=== PATIENT | female | born 1995 | race Caucasian/White ===

== ENCOUNTER 2017-07-24 19:52 | Emergency (ER) | payer SELFPAY ==
[~2017-07-24] VITALS: Ht 167.6 cm; Wt 79.5 kg
[2017-07-24 20:04] VITALS: PULSE 75; TEMP 98.1
[2017-07-24] MEDS ORDERED: PHENERGAN 25 TA25 MG PO (23:40)
[2017-07-25 00:08] VITALS: BP 154/73
== END 2017-07-25 00:08 | disposition home or self-care (01) ==
LOC: COL.ER 19:52
DX: K52.9 Noninfective gastroenteritis and colitis, unspecified (principal)
CPT/HCPCS: J1200; J1885; J2550; J7030

== ENCOUNTER 2017-08-22 15:32 | Emergency (ER) | payer SELFPAY ==
[~2017-08-22] VITALS: Ht 167.6 cm; Wt 75.0 kg
[~2017-08-22 15:32] MED LIST: PHENERGAN 25 TA25 MG PO
[2017-08-22 15:34] VITALS: BP 151/67; TEMP 97.7
[2017-08-22 17:01] VITALS: PULSE 82
== END 2017-08-22 17:02 | disposition home or self-care (01) ==
LOC: COL.ER 15:32
DX: M25.461 Effusion, right knee (principal); F17.210 Nicotine dependence, cigarettes, uncomplicated; X58.XXXA Exposure to other specified factors, initial encounter; Y92.89 Other specified places as the place of occurrence of the external cause; Y99.0 Civilian activity done for income or pay

== ENCOUNTER 2017-09-13 20:48 | Emergency (ER) | payer SELFPAY ==
[~2017-09-13] VITALS: Ht 167.6 cm; Wt 80.9 kg
[2017-09-13 22:09] LABS: COLLECTION METHOD CLEAN CATCH
[2017-09-13 22:23] LABS: MUCOUS Present /lpf; PH 5 (5-8); URINE APPEARANCE Hazy; URINE BACTERIA None Seen /hpf; URINE BILIRUBIN Negative (NEGATIVE); URINE BLOOD Negative (NEGATIVE); URINE COLOR Yellow; URINE GLUCOSE Negative (NEGATIVE); URINE KETONE Negative (NEGATIVE); URINE LEUKOCYTE ESTERASE Negative (NEGATIVE); URINE NITRATE Negative (NEGATIVE); URINE PROTEIN(semi-quant) Negative (NEGATIVE); URINE RBC 0-2 /hpf; URINE UROBILINOGEN Negative (NEGATIVE)
[2017-09-13 22:58] LABS: BASO % 0.4 % (0.0-2.0); EOS # 0.1 (0.0-0.7); EOS % 1.5 % (0-4.0); GRAN % 63.3 % (42.2-75.2); HEMATOCRIT 41.4 % (35.0-45.0); HEMOGLOBIN 13.9 g/dl (12.0-15.0); LYMPH % 24.9 % (20.0-51.0); MEAN CELL VOLUME 89 fl (80.0-95.0); MEAN CORPUSCULAR HEMOGLOBIN 30 pg (26.0-32.0); MEAN CORPUSCULAR HGB CONC 34 g/dl (33.0-37.0); MEAN PLATELET VOLUME 11.2 fl (7.4-10.4); MONO # 0.8 (0.1-0.6); MONO % 9.5 % (1.7-9.3); PLATELET COUNT 205 K/mm3 (130-400); RED BLOOD COUNT 4.68 M/mm3 (4.10-5.30); REDCELL DISTRIBUTION WIDTH-CV 12.9 % (11.5-14.5)
[2017-09-13 23:12] LABS: ALANINE AMINOTRANSFERASE 32 U/L (9-52); ALBUMIN 4.1 gm/dL (3.5-5.0); ALKALINE PHOSPHATASE 99 U/L (50-136); ANION GAP 13 mmol/L (7-16); AST,SGOT 26 U/L (15-37); BILIRUBIN,TOTAL 0.2 mg/dL (0.0-1.0); BLOOD UREA NITROGEN 11 mg/dL (7-17); CALCIUM 9.3 mg/dL (8.4-10.2); CARBON DIOXIDE 22 mmol/L (22-30); CHLORIDE 103 mmol/L (98-107); CREATININE, serum 0.69 mg/dL (0.52-1.25); GLUCOSE 81 mg/dL (74-106); SODIUM 138 mmol/L (137-145); TOTAL PROTEIN 7.5 gm/dL (6.4-8.2)
[2017-09-13 23:13] LABS: C-REACTIVE PROTEIN < 0.5 mg/dL (0.0-0.9)
[2017-09-14 00:15] VITALS: BP 16/80; PULSE 76; TEMP 98
== END 2017-09-14 00:15 | disposition home or self-care (01) ==
LOC: COL.ER 20:48
PROVIDERS: Emergency Medicine; Nurse Practitioner
DX: R11.2 Nausea with vomiting, unspecified (principal); R19.7 Diarrhea, unspecified; F90.9 Attention-deficit hyperactivity disorder, unspecified type; F98.8 Other specified behavioral and emotional disorders with onset usually occurring in childhood and adolescence; F31.9 Bipolar disorder, unspecified; F20.9 Schizophrenia, unspecified; F42.9 Obsessive-compulsive disorder, unspecified; F17.210 Nicotine dependence, cigarettes, uncomplicated
CPT/HCPCS: J2550; J7030

== ENCOUNTER 2017-10-03 22:33 | Emergency (ER) | payer SELFPAY ==
[~2017-10-03] VITALS: Ht 167.6 cm; Wt 76.4 kg
[2017-10-03] MEDS ORDERED: ZITHROMAX 250M250 MG PO (23:27)
[2017-10-03 23:59] VITALS: BP 112/73; PULSE 80; TEMP 98.3
== END 2017-10-03 23:55 | disposition home or self-care (01) ==
LOC: COL.ER 22:33
DX: J40 Bronchitis, not specified as acute or chronic (principal); F90.9 Attention-deficit hyperactivity disorder, unspecified type; F32.9 Major depressive disorder, single episode, unspecified; F20.9 Schizophrenia, unspecified; F17.210 Nicotine dependence, cigarettes, uncomplicated
CPT/HCPCS: J8540

== ENCOUNTER 2017-10-15 12:29 | Observation (INO) | payer SELFPAY ==
[~2017-10-15] VITALS: Ht 167.6 cm; Wt 79.6 kg
[~2017-10-15 12:29] MED LIST changes: +ZITHROMAX 250M250 MG PO
[2017-10-15] MEDS ORDERED: FLEXERIL 1010 MG/TAB PO (12:51)
[2017-10-15 13:22] LABS: COLLECTION METHOD CLEAN CATCH
[2017-10-15 13:32] LABS: PH 6 (5-8); SQUAMOUS EPITHELIAL 0-2 /hpf; URINE APPEARANCE Clear; URINE BACTERIA None Seen /hpf; URINE BILIRUBIN Negative (NEGATIVE); URINE BLOOD Negative (NEGATIVE); URINE COLOR Straw; URINE GLUCOSE Negative (NEGATIVE); URINE KETONE Negative (NEGATIVE); URINE LEUKOCYTE ESTERASE Negative (NEGATIVE); URINE NITRATE Negative (NEGATIVE); URINE PROTEIN(semi-quant) Negative (NEGATIVE); URINE RBC 0-2 /hpf; URINE UROBILINOGEN Negative (NEGATIVE)
[2017-10-15 13:41] LABS: TRICYCLIC ANTIDEPRESS URINE NEGATIVE
[2017-10-15 13:45] LABS: BASO # 0.1 (0.0-0.2); BASO % 0.5 % (0.0-2.0); EOS # 0.1 (0.0-0.7); EOS % 1.4 % (0-4.0); GRAN # 6.7 (1.4-6.5); GRAN % 68.5 % (42.2-75.2); HEMATOCRIT 42.2 % (37.0-47.0); HEMOGLOBIN 14.3 g/dl (12.5-16.0); LYMPH % 20.6 % (20.0-51.0); MEAN CELL VOLUME 89 fl (80.0-100.0); MEAN CORPUSCULAR HEMOGLOBIN 30 pg (27.0-31.0); MEAN CORPUSCULAR HGB CONC 34 g/dl (33.0-37.0); MEAN PLATELET VOLUME 11.5 fl (7.4-10.4); MONO # 0.8 (0.1-0.6); MONO % 8.6 % (1.7-9.3); PLATELET COUNT 180 K/mm3 (130-400); RED BLOOD COUNT 4.73 M/mm3 (4.10-5.30); REDCELL DISTRIBUTION WIDTH-CV 12.6 % (11.5-14.5)
[2017-10-15 13:53] LABS: ALANINE AMINOTRANSFERASE 21 U/L (9-52); ALKALINE PHOSPHATASE 94 U/L (50-136); ANION GAP 14 mmol/L (7-16); AST,SGOT 25 U/L (15-37); BILIRUBIN,TOTAL 0.1 mg/dL (0.0-1.0); BLOOD UREA NITROGEN 9 mg/dL (7-17); CALCIUM 10.1 mg/dL (8.4-10.2); CARBON DIOXIDE 19 mmol/L (22-30); CHLORIDE 109 mmol/L (98-107); GLUCOSE 88 mg/dL (74-106); POTASSIUM 4.1 mmol/L (3.4-5.0); SODIUM 142 mmol/L (137-145); TOTAL PROTEIN 7.4 gm/dL (6.4-8.2)
[2017-10-15 13:56] LABS: ACETAMINOPHEN < 10 ug/mL (10-30); ALCOHOL(ethanol),MEDICAL < 10 mg/dL; SALICYLATE < 1.0 mg/dL
[2017-10-15 17:06] VITALS: BP 115/73; PULSE 106; TEMP 98.3
[2017-10-15 17:35] LABS: CALCIUM 9.4 mg/dL (8.4-10.2); CREATININE, serum 0.66 mg/dL (0.52-1.25); POTASSIUM 3.9 mmol/L (3.4-5.0)
[2017-10-15 19:45] VITALS: PULSE 103; TEMP 98.4
[2017-10-15 22:05] LABS: ARTERIAL BLD GAS O2 SATURATION 86.2 % (92-100); ARTERIAL BLD GAS TCO2 CT 26.1; ARTERIAL BLOOD GAS BASE EXCESS 0.7 (-2-2); ARTERIAL BLOOD GAS HCO3 24.9 meq/L (22-26); ARTERIAL BLOOD GAS PCO2 38.7 mmHg (35-45); ARTERIAL BLOOD GAS pH 7.43 (7.35-7.45)
[2017-10-15 22:06] LABS: ARTERIAL BLOOD GAS PO2 45.4 mmHg (80-100)
[2017-10-16 00:45] VITALS: BP 132/94; PULSE 90
[2017-10-16 01:46] LABS: CREATININE, serum 0.62 mg/dL (0.52-1.25)
[2017-10-16 02:01] LABS: ARTERIAL BLD GAS O2 SATURATION 97.7 % (92-100); ARTERIAL BLD GAS TCO2 CT 26.2; ARTERIAL BLOOD GAS BASE EXCESS 2.1 (-2-2); ARTERIAL BLOOD GAS HCO3 25.1 meq/L (22-26); ARTERIAL BLOOD GAS PCO2 34.2 mmHg (35-45); ARTERIAL BLOOD GAS PO2 103.9 mmHg (80-100); ARTERIAL BLOOD GAS pH 7.48 (7.35-7.45)
[2017-10-16 04:00] VITALS: BP 120/83; PULSE 93; TEMP 98.1
[2017-10-16 05:03] LABS: ARTERIAL BLD GAS O2 SATURATION 97.3 % (92-100); ARTERIAL BLD GAS TCO2 CT 25.6; ARTERIAL BLOOD GAS BASE EXCESS 0.7 (-2-2); ARTERIAL BLOOD GAS HCO3 24.4 meq/L (22-26); ARTERIAL BLOOD GAS PCO2 36.4 mmHg (35-45); ARTERIAL BLOOD GAS PO2 97.1 mmHg (80-100); ARTERIAL BLOOD GAS pH 7.45 (7.35-7.45)
[2017-10-16 06:19] LABS: CALCIUM 8.7 mg/dL (8.4-10.2); CREATININE, serum 0.6 mg/dL (0.52-1.25); POTASSIUM 3.1 mmol/L (3.4-5.0)
[2017-10-16 07:55] VITALS: BP 131/96; PULSE 93; TEMP 98.7
[2017-10-16 09:22] LABS: CALCIUM 8.9 mg/dL (8.4-10.2); CREATININE, serum 0.64 mg/dL (0.52-1.25); POTASSIUM 3.3 mmol/L (3.4-5.0)
[2017-10-16] MEDS ORDERED: K-DUR 10 MEQ T10 MEQ PO (11:11)
[2017-10-16 12:00] VITALS: BP 126/76; PULSE 108; TEMP 98.8
== END 2017-10-16 13:15 | disposition home or self-care (01) ==
LOC: COL.ER 12:29 → ICU 15:09
PROVIDERS: Nurse Practitioner Family; Physician Assistant
DX: T48.1X1A Poisoning by skeletal muscle relaxants [neuromuscular blocking agents], accidental (unintentional), initial encounter (principal); E87.6 Hypokalemia; F90.9 Attention-deficit hyperactivity disorder, unspecified type; F42.9 Obsessive-compulsive disorder, unspecified; F31.9 Bipolar disorder, unspecified; F20.9 Schizophrenia, unspecified; F17.210 Nicotine dependence, cigarettes, uncomplicated; F41.9 Anxiety disorder, unspecified; F51.04 Psychophysiologic insomnia; F41.0 Panic disorder [episodic paroxysmal anxiety]; Z81.8 Family history of other mental and behavioral disorders; Z83.3 Family history of diabetes mellitus
CPT/HCPCS: 99223-AI; G0378; J1650; J2060; J7030

== ENCOUNTER 2017-10-28 06:32 | Emergency (ER) | payer SELFPAY ==
[~2017-10-28] VITALS: Ht 167.6 cm; Wt 80.0 kg
[~2017-10-28 06:32] MED LIST changes: +FLEXERIL 1010 MG/TAB PO; +K-DUR 10 MEQ T10 MEQ PO
[2017-10-28 06:35] VITALS: TEMP 97.5
[2017-10-28 07:22] LABS: COLLECTION METHOD CLEAN CATCH
[2017-10-28 07:26] LABS: BASO % 0.3 % (0.0-2.0); EOS # 0.1 (0.0-0.7); EOS % 0.3 % (0-4.0); GRAN # 12.4 (1.4-6.5); GRAN % 83.3 % (42.2-75.2); HEMATOCRIT 41.9 % (37.0-47.0); LYMPH # 1.6 (1.2-3.4); LYMPH % 10.6 % (20.0-51.0); MEAN CELL VOLUME 89 fl (80.0-100.0); MEAN CORPUSCULAR HEMOGLOBIN 30 pg (27.0-31.0); MEAN CORPUSCULAR HGB CONC 33 g/dl (33.0-37.0); MEAN PLATELET VOLUME 10.1 fl (7.4-10.4); MONO # 0.7 (0.1-0.6); PLATELET COUNT 281 K/mm3 (130-400); RED BLOOD COUNT 4.73 M/mm3 (4.10-5.30); REDCELL DISTRIBUTION WIDTH-CV 12.8 % (11.5-14.5)
[2017-10-28 07:36] LABS: MUCOUS Present /lpf; PH 8 (5-8); URINE APPEARANCE Cloudy; URINE BACTERIA None Seen /hpf; URINE BILIRUBIN Negative (NEGATIVE); URINE BLOOD Negative (NEGATIVE); URINE COLOR Yellow; URINE GLUCOSE Negative (NEGATIVE); URINE KETONE Trace (NEGATIVE); URINE LEUKOCYTE ESTERASE Negative (NEGATIVE); URINE NITRATE Negative (NEGATIVE); URINE PROTEIN(semi-quant) 1+ (NEGATIVE); URINE RBC None Seen /hpf
[2017-10-28 07:38] LABS: ALBUMIN 4.4 gm/dL (3.5-5.0); BILIRUBIN,TOTAL 0.4 mg/dL (0.0-1.0); CALCIUM 9.6 mg/dL (8.4-10.2); CREATININE, serum 0.62 mg/dL (0.52-1.25); POTASSIUM 3.5 mmol/L (3.4-5.0); TOTAL PROTEIN 8.5 gm/dL (6.4-8.2)
[2017-10-28] MEDS ORDERED: ZOFRAN ODT4 MG PO (08:12)
[2017-10-28 08:28] VITALS: BP 124/70; PULSE 70
== END 2017-10-28 08:20 | disposition home or self-care (01) ==
LOC: COL.ER 06:32
PROVIDERS: Emergency Medicine
DX: O99.89 Other specified diseases and conditions complicating pregnancy, childbirth and the puerperium (principal); R11.2 Nausea with vomiting, unspecified; O99.331 Smoking (tobacco) complicating pregnancy, first trimester; F17.210 Nicotine dependence, cigarettes, uncomplicated; Z3A.00 Weeks of gestation of pregnancy not specified
CPT/HCPCS: J2550

== ENCOUNTER 2017-11-01 18:10 | Emergency (ER) | payer SELFPAY ==
[~2017-11-01] VITALS: Ht 167.6 cm; Wt 83.3 kg
[~2017-11-01 18:10] MED LIST changes: +ZOFRAN ODT4 MG PO
[2017-11-01 18:13] VITALS: BP 117/65; PULSE 79; TEMP 97.8
== END 2017-11-01 18:20 | disposition left against medical advice (07) ==
LOC: COL.ER 18:10
DX: Z34.01 Encounter for supervision of normal first pregnancy, first trimester (principal)

== ENCOUNTER 2017-11-07 20:15 | Emergency (ER) | payer SELFPAY | END 2017-11-07 20:28 | disposition left against medical advice (07) | LOC: COL.ER 20:15 | DX: R69 Illness, unspecified (principal) ==

== ENCOUNTER 2017-11-21 05:02 | Emergency (ER) | payer SELFPAY ==
[~2017-11-21] VITALS: Ht 167.6 cm; Wt 81.8 kg
[2017-11-21 05:04] VITALS: TEMP 98.5
[2017-11-21 06:16] LABS: BASO % 0.5 % (0.0-2.0); EOS # 0.1 (0.0-0.7); EOS % 1.3 % (0-4.0); GRAN # 4.8 (1.4-6.5); GRAN % 55.1 % (42.2-75.2); HEMATOCRIT 37.5 % (37.0-47.0); LYMPH # 2.7 (1.2-3.4); LYMPH % 30.9 % (20.0-51.0); MEAN CELL VOLUME 88 fl (80.0-100.0); MEAN CORPUSCULAR HEMOGLOBIN 30 pg (27.0-31.0); MEAN CORPUSCULAR HGB CONC 35 g/dl (33.0-37.0); MEAN PLATELET VOLUME 11.2 fl (7.4-10.4); MONO % 11.9 % (1.7-9.3); PLATELET COUNT 197 K/mm3 (130-400); RED BLOOD COUNT 4.28 M/mm3 (4.10-5.30); REDCELL DISTRIBUTION WIDTH-CV 13.2 % (11.5-14.5)
[2017-11-21 06:39] LABS: CALCIUM 9.6 mg/dL (8.4-10.2); CREATININE, serum 0.56 mg/dL (0.52-1.25); POTASSIUM 3.7 mmol/L (3.4-5.0)
[2017-11-21 06:57] LABS: GASTROCCULT POSITIVE; pH GASTRIC CONTENTS 3
[2017-11-21] MEDS ORDERED: PHENERGAN 25 TA25 MG PO (07:09)
[2017-11-21] MEDS ORDERED: PEPCID 20MG TAB20 MG PO (07:09)
[2017-11-21 07:25] VITALS: BP 121/75; PULSE 70
== END 2017-11-21 07:26 | disposition home or self-care (01) ==
LOC: COL.ER 05:02
PROVIDERS: Emergency Medicine
DX: O21.9 Vomiting of pregnancy, unspecified (principal); O99.611 Diseases of the digestive system complicating pregnancy, first trimester; O99.331 Smoking (tobacco) complicating pregnancy, first trimester; K29.70 Gastritis, unspecified, without bleeding; F17.210 Nicotine dependence, cigarettes, uncomplicated; Z3A.01 Less than 8 weeks gestation of pregnancy
CPT/HCPCS: J2765; J7120

== ENCOUNTER 2017-12-24 16:44 | Emergency (ER) | payer SELFPAY ==
[~2017-12-24] VITALS: Ht 167.6 cm; Wt 73.9 kg
[~2017-12-24 16:44] MED LIST changes: +PEPCID 20MG TAB20 MG PO
[2017-12-24 16:52] VITALS: BP 130/68; TEMP 98
[2017-12-24 17:49] LABS: COLLECTION METHOD CLEAN CATCH
[2017-12-24 17:53] LABS: BASO # 0.1 (0.0-0.2); BASO % 0.4 % (0.0-2.0); EOS # 0.2 (0.0-0.7); EOS % 1.4 % (0-4.0); GRAN # 8.2 (1.4-6.5); GRAN % 72.6 % (42.2-75.2); HEMOGLOBIN 12.7 g/dl (12.5-16.0); LYMPH # 2.1 (1.2-3.4); LYMPH % 18.3 % (20.0-51.0); MEAN CELL VOLUME 85 fl (80.0-100.0); MEAN CORPUSCULAR HEMOGLOBIN 30 pg (27.0-31.0); MEAN CORPUSCULAR HGB CONC 35 g/dl (33.0-37.0); MEAN PLATELET VOLUME 11.3 fl (7.4-10.4); MONO # 0.8 (0.1-0.6); MONO % 6.9 % (1.7-9.3); PLATELET COUNT 217 K/mm3 (130-400); REDCELL DISTRIBUTION WIDTH-CV 12.9 % (11.5-14.5)
[2017-12-24 17:55] LABS: HEMATOCRIT 36.7 % (37.0-47.0)
[2017-12-24 17:55] LABS: MUCOUS Present /lpf; PH 5 (5-8); URINE APPEARANCE Hazy; URINE BACTERIA None Seen /hpf; URINE BILIRUBIN Negative (NEGATIVE); URINE BLOOD Negative (NEGATIVE); URINE COLOR Yellow; URINE GLUCOSE Negative (NEGATIVE); URINE KETONE Negative (NEGATIVE); URINE LEUKOCYTE ESTERASE Negative (NEGATIVE); URINE NITRATE Negative (NEGATIVE); URINE PROTEIN(semi-quant) Negative (NEGATIVE); URINE RBC 0-2 /hpf
[2017-12-24 18:19] LABS: ALBUMIN 3.9 gm/dL (3.5-5.0); BILIRUBIN,TOTAL 0.1 mg/dL (0.0-1.0); CALCIUM 9.6 mg/dL (8.4-10.2); CREATININE, serum 0.52 mg/dL (0.52-1.25); POTASSIUM 4.4 mmol/L (3.4-5.0); TOTAL PROTEIN 6.8 gm/dL (6.4-8.2)
[2017-12-24] MEDS ORDERED: FLAGYL500 MG PO (18:38)
[2017-12-24 18:50] VITALS: PULSE 92
== END 2017-12-24 18:50 | disposition home or self-care (01) ==
LOC: COL.ER 16:44
PROVIDERS: Physician Assistant
DX: O21.9 Vomiting of pregnancy, unspecified (principal); O99.89 Other specified diseases and conditions complicating pregnancy, childbirth and the puerperium; O99.341 Other mental disorders complicating pregnancy, first trimester; O99.331 Smoking (tobacco) complicating pregnancy, first trimester; R19.7 Diarrhea, unspecified; R10.2 Pelvic and perineal pain; F17.210 Nicotine dependence, cigarettes, uncomplicated; F90.9 Attention-deficit hyperactivity disorder, unspecified type; F31.9 Bipolar disorder, unspecified; Z3A.13 13 weeks gestation of pregnancy; F42.9 Obsessive-compulsive disorder, unspecified

== ENCOUNTER 2018-01-03 17:19 | Emergency (ER) | payer MEDICAID ==
[~2018-01-03] VITALS: Ht 167.6 cm; Wt 74.4 kg
[~2018-01-03 17:19] MED LIST changes: +FLAGYL500 MG PO
[2018-01-03 17:22] VITALS: BP 116/59; PULSE 106; TEMP 98.2
[2018-01-03 17:59] LABS: COLLECTION METHOD CLEAN CATCH
[2018-01-03 18:07] LABS: MUCOUS Present /lpf; PH 6 (5-8); URINE APPEARANCE Hazy; URINE BACTERIA None Seen /hpf; URINE BILIRUBIN Negative (NEGATIVE); URINE BLOOD Negative (NEGATIVE); URINE COLOR Yellow; URINE GLUCOSE Negative (NEGATIVE); URINE KETONE Negative (NEGATIVE); URINE LEUKOCYTE ESTERASE Negative (NEGATIVE); URINE NITRATE Negative (NEGATIVE); URINE PROTEIN(semi-quant) 1+ (NEGATIVE); URINE RBC 0-2 /hpf; URINE UROBILINOGEN Negative (NEGATIVE)
== END 2018-01-03 18:15 | disposition home or self-care (01) ==
LOC: COL.ER 17:19
PROVIDERS: Physician Assistant
DX: O9A.212 Injury, poisoning and certain other consequences of external causes complicating pregnancy, second trimester (principal); O99.89 Other specified diseases and conditions complicating pregnancy, childbirth and the puerperium; S80.212A Abrasion, left knee, initial encounter; R10.9 Unspecified abdominal pain; Z3A.15 15 weeks gestation of pregnancy; W10.9XXA Fall (on) (from) unspecified stairs and steps, initial encounter; Y92.009 Unspecified place in unspecified non-institutional (private) residence as the place of occurrence of the external cause

== ENCOUNTER 2018-01-07 21:28 | Emergency (ER) | payer MEDICAID ==
[~2018-01-07] VITALS: Ht 167.6 cm; Wt 73.6 kg
[2018-01-07 21:35] VITALS: BP 129/64; TEMP 98.8
[2018-01-07 22:53] LABS: BASO # 0.1 (0.0-0.2); BASO % 0.5 % (0.0-2.0); EOS # 0.2 (0.0-0.7); EOS % 1.6 % (0-4.0); GRAN # 10.1 (1.4-6.5); GRAN % 72.2 % (42.2-75.2); HEMOGLOBIN 11.9 g/dl (12.5-16.0); LYMPH # 2.7 (1.2-3.4); LYMPH % 18.9 % (20.0-51.0); MEAN CELL VOLUME 88 fl (80.0-100.0); MEAN CORPUSCULAR HEMOGLOBIN 30 pg (27.0-31.0); MEAN CORPUSCULAR HGB CONC 34 g/dl (33.0-37.0); MEAN PLATELET VOLUME 11.6 fl (7.4-10.4); MONO # 0.9 (0.1-0.6); MONO % 6.5 % (1.7-9.3); PLATELET COUNT 197 K/mm3 (130-400); RED BLOOD COUNT 3.96 M/mm3 (4.10-5.30); REDCELL DISTRIBUTION WIDTH-CV 13.4 % (11.5-14.5)
[2018-01-07 22:59] LABS: COLLECTION METHOD CLEAN CATCH
[2018-01-07 23:02] LABS: ALANINE AMINOTRANSFERASE 22 U/L (9-52); ALBUMIN 3.6 gm/dL (3.5-5.0); ALKALINE PHOSPHATASE 79 U/L (50-136); ANION GAP 8 mmol/L (7-16); AST,SGOT 14 U/L (15-37); BILIRUBIN,TOTAL < 0.1 mg/dL (0.0-1.0); BLOOD UREA NITROGEN 8 mg/dL (7-17); CALCIUM 9.3 mg/dL (8.4-10.2); CARBON DIOXIDE 25 mmol/L (22-30); CHLORIDE 102 mmol/L (98-107); CREATININE, serum 0.57 mg/dL (0.52-1.25); GLUCOSE 84 mg/dL (74-106); POTASSIUM 4.4 mmol/L (3.4-5.0); SODIUM 135 mmol/L (137-145); TOTAL PROTEIN 6.6 gm/dL (6.4-8.2)
[2018-01-07 23:05] LABS: MUCOUS Present /lpf; PH 5 (5-8); URINE APPEARANCE Clear; URINE BACTERIA None Seen /hpf; URINE BILIRUBIN Negative (NEGATIVE); URINE BLOOD Negative (NEGATIVE); URINE COLOR Yellow; URINE GLUCOSE Negative (NEGATIVE); URINE KETONE Negative (NEGATIVE); URINE LEUKOCYTE ESTERASE Negative (NEGATIVE); URINE NITRATE Negative (NEGATIVE); URINE PROTEIN(semi-quant) Negative (NEGATIVE); URINE RBC 0-2 /hpf
[2018-01-08 00:03] VITALS: PULSE 88
== END 2018-01-08 00:04 | disposition home or self-care (01) ==
LOC: COL.ER 21:28
PROVIDERS: Physician Assistant
DX: O26.892 Other specified pregnancy related conditions, second trimester (principal); O21.9 Vomiting of pregnancy, unspecified; R10.31 Right lower quadrant pain; Z3A.20 20 weeks gestation of pregnancy
CPT/HCPCS: J2765

== ENCOUNTER 2018-01-08 17:41 | Emergency (ER) | payer MEDICAID ==
[~2018-01-08] VITALS: Ht 167.6 cm; Wt 72.7 kg
[2018-01-08 17:45] VITALS: TEMP 99
[2018-01-08 18:15] LABS: COLLECTION METHOD CLEAN CATCH
[2018-01-08 18:17] LABS: BASO % 0.3 % (0.0-2.0); EOS # 0.1 (0.0-0.7); EOS % 0.9 % (0-4.0); GRAN # 10.9 (1.4-6.5); GRAN % 78.3 % (42.2-75.2); HEMOGLOBIN 11.8 g/dl (12.5-16.0); LYMPH # 1.9 (1.2-3.4); LYMPH % 13.6 % (20.0-51.0); MEAN CELL VOLUME 88 fl (80.0-100.0); MEAN CORPUSCULAR HEMOGLOBIN 30 pg (27.0-31.0); MEAN CORPUSCULAR HGB CONC 34 g/dl (33.0-37.0); MEAN PLATELET VOLUME 11.5 fl (7.4-10.4); MONO # 0.9 (0.1-0.6); MONO % 6.6 % (1.7-9.3); PLATELET COUNT 199 K/mm3 (130-400); RED BLOOD COUNT 3.94 M/mm3 (4.10-5.30); REDCELL DISTRIBUTION WIDTH-CV 13.3 % (11.5-14.5)
[2018-01-08 18:21] LABS: MUCOUS Present /lpf; PH 5 (5-8); URINE APPEARANCE Hazy; URINE BACTERIA None Seen /hpf; URINE BILIRUBIN Negative (NEGATIVE); URINE BLOOD Negative (NEGATIVE); URINE COLOR Yellow; URINE GLUCOSE Negative (NEGATIVE); URINE KETONE Negative (NEGATIVE); URINE LEUKOCYTE ESTERASE Negative (NEGATIVE); URINE NITRATE Negative (NEGATIVE); URINE PROTEIN(semi-quant) Negative (NEGATIVE); URINE RBC 0-2 /hpf; URINE UROBILINOGEN Negative (NEGATIVE)
[2018-01-08 18:23] LABS: HEMATOCRIT 34.5 % (37.0-47.0)
[2018-01-08 18:28] LABS: ALBUMIN 3.6 gm/dL (3.5-5.0); BILIRUBIN,TOTAL 0.1 mg/dL (0.0-1.0); C-REACTIVE PROTEIN 2.2 mg/dL (0.0-0.9); CALCIUM 9.3 mg/dL (8.4-10.2); CREATININE, serum 0.54 mg/dL (0.52-1.25); POTASSIUM 3.5 mmol/L (3.4-5.0); TOTAL PROTEIN 6.6 gm/dL (6.4-8.2)
[2018-01-08 20:09] VITALS: BP 115/82; PULSE 85
== END 2018-01-08 20:15 | disposition home or self-care (01) ==
LOC: COL.ER 17:41
PROVIDERS: Family Medicine
DX: O26.891 Other specified pregnancy related conditions, first trimester (principal); R10.31 Right lower quadrant pain; Z3A.14 14 weeks gestation of pregnancy
CPT/HCPCS: J7030

== ENCOUNTER 2018-02-01 09:35 | Emergency (ER) | payer MEDICAID ==
[~2018-02-01] VITALS: Ht 167.6 cm; Wt 77.3 kg
[2018-02-01 10:12] LABS: COLLECTION METHOD CLEAN CATCH
[2018-02-01 10:13] LABS: BASO % 0.4 % (0.0-2.0); EOS # 0.1 (0.0-0.7); EOS % 0.8 % (0-4.0); GRAN # 8.6 (1.4-6.5); GRAN % 77.9 % (42.2-75.2); HEMATOCRIT 35.5 % (37.0-47.0); HEMOGLOBIN 12.1 g/dl (12.5-16.0); LYMPH # 1.5 (1.2-3.4); LYMPH % 13.9 % (20.0-51.0); MEAN CELL VOLUME 89 fl (80.0-100.0); MEAN CORPUSCULAR HEMOGLOBIN 30 pg (27.0-31.0); MEAN CORPUSCULAR HGB CONC 34 g/dl (33.0-37.0); MONO # 0.7 (0.1-0.6); MONO % 6.4 % (1.7-9.3); PLATELET COUNT 201 K/mm3 (130-400); RED BLOOD COUNT 3.98 M/mm3 (4.10-5.30); REDCELL DISTRIBUTION WIDTH-CV 14.1 % (11.5-14.5)
[2018-02-01 10:20] LABS: MUCOUS Present /lpf; PH 6 (5-8); SQUAMOUS EPITHELIAL 20-50 /hpf; URINE APPEARANCE Cloudy; URINE BACTERIA Rare /hpf; URINE BILIRUBIN Negative (NEGATIVE); URINE BLOOD Negative (NEGATIVE); URINE COLOR Yellow; URINE GLUCOSE Negative (NEGATIVE); URINE KETONE Negative (NEGATIVE); URINE LEUKOCYTE ESTERASE Negative (NEGATIVE); URINE NITRATE Negative (NEGATIVE); URINE PROTEIN(semi-quant) 2+ (NEGATIVE); URINE UROBILINOGEN Negative (NEGATIVE)
[2018-02-01 10:25] LABS: ALBUMIN 3.6 gm/dL (3.5-5.0); BILIRUBIN,TOTAL 0.3 mg/dL (0.0-1.0); CALCIUM 8.9 mg/dL (8.4-10.2); CREATININE, serum 0.56 mg/dL (0.52-1.25); TOTAL PROTEIN 6.8 gm/dL (6.4-8.2)
[2018-02-01 11:09] VITALS: BP 123/78; PULSE 88; TEMP 97.7
== END 2018-02-01 11:09 | disposition home or self-care (01) ==
LOC: COL.ER 09:35
PROVIDERS: Family Medicine
DX: O46.92 Antepartum hemorrhage, unspecified, second trimester (principal); Z3A.17 17 weeks gestation of pregnancy; Z87.891 Personal history of nicotine dependence

== ENCOUNTER 2018-02-13 20:36 | Emergency (ER) | payer MEDICAID ==
[~2018-02-13] VITALS: Ht 167.6 cm; Wt 78.2 kg
[2018-02-13 20:43] VITALS: TEMP 98.3
[2018-02-13 21:22] LABS: BASO # 0.1 (0.0-0.2); BASO % 0.3 % (0.0-2.0); EOS # 0.2 (0.0-0.7); EOS % 1.4 % (0-4.0); GRAN # 10.6 (1.4-6.5); GRAN % 74.1 % (42.2-75.2); HEMOGLOBIN 11.2 g/dl (12.5-16.0); LYMPH # 2.3 (1.2-3.4); LYMPH % 15.8 % (20.0-51.0); MEAN CELL VOLUME 89 fl (80.0-100.0); MEAN CORPUSCULAR HEMOGLOBIN 30 pg (27.0-31.0); MEAN CORPUSCULAR HGB CONC 34 g/dl (33.0-37.0); MONO # 1.1 (0.1-0.6); MONO % 7.8 % (1.7-9.3); PLATELET COUNT 202 K/mm3 (130-400); RED BLOOD COUNT 3.69 M/mm3 (4.10-5.30); REDCELL DISTRIBUTION WIDTH-CV 13.8 % (11.5-14.5)
[2018-02-13 21:24] LABS: HEMATOCRIT 32.8 % (37.0-47.0)
[2018-02-13 21:34] LABS: ALANINE AMINOTRANSFERASE 21 U/L (9-52); ALBUMIN 3.6 gm/dL (3.5-5.0); ALKALINE PHOSPHATASE 70 U/L (50-136); ANION GAP 9 mmol/L (7-16); AST,SGOT 16 U/L (15-37); BILIRUBIN,TOTAL < 0.1 mg/dL (0.0-1.0); BLOOD UREA NITROGEN 12 mg/dL (7-17); C-REACTIVE PROTEIN 1.4 mg/dL (0.0-0.9); CALCIUM 8.7 mg/dL (8.4-10.2); CARBON DIOXIDE 22 mmol/L (22-30); CHLORIDE 103 mmol/L (98-107); CREATININE, serum 0.58 mg/dL (0.52-1.25); GLUCOSE 80 mg/dL (74-106); LIPASE 78 U/L (23-300); POTASSIUM 3.9 mmol/L (3.4-5.0); SODIUM 133 mmol/L (137-145); TOTAL PROTEIN 6.8 gm/dL (6.4-8.2)
[2018-02-13 21:35] LABS: COLLECTION METHOD CLEAN CATCH
[2018-02-13 21:40] LABS: MUCOUS Present /lpf; PH 5 (5-8); URINE APPEARANCE Clear; URINE BACTERIA Rare /hpf; URINE BILIRUBIN Negative (NEGATIVE); URINE BLOOD Negative (NEGATIVE); URINE COLOR Yellow; URINE GLUCOSE Negative (NEGATIVE); URINE KETONE Negative (NEGATIVE); URINE LEUKOCYTE ESTERASE Negative (NEGATIVE); URINE NITRATE Negative (NEGATIVE); URINE PROTEIN(semi-quant) Negative (NEGATIVE); URINE RBC 0-2 /hpf
[2018-02-13] MEDS ORDERED: PHENERGAN 25 TA25 MG PO (22:09)
[2018-02-13] MEDS ORDERED: FLAGYL500 MG PO (22:29)
[2018-02-13 22:39] VITALS: BP 112/74; PULSE 75
== END 2018-02-13 22:42 | disposition home or self-care (01) ==
LOC: COL.ER 20:36
PROVIDERS: Emergency Medicine
DX: O26.892 Other specified pregnancy related conditions, second trimester (principal); O21.9 Vomiting of pregnancy, unspecified; O23.592 Infection of other part of genital tract in pregnancy, second trimester; O99.332 Smoking (tobacco) complicating pregnancy, second trimester; O99.342 Other mental disorders complicating pregnancy, second trimester; F31.9 Bipolar disorder, unspecified; F90.9 Attention-deficit hyperactivity disorder, unspecified type; B96.89 Other specified bacterial agents as the cause of diseases classified elsewhere; R10.30 Lower abdominal pain, unspecified; F17.210 Nicotine dependence, cigarettes, uncomplicated; Z3A.21 21 weeks gestation of pregnancy
CPT/HCPCS: J2550

== ENCOUNTER 2018-03-16 19:17 | Emergency (ER) | payer MEDICAID ==
[~2018-03-16] VITALS: Ht 167.6 cm; Wt 81.8 kg
[2018-03-16 19:21] VITALS: BP 126/67; TEMP 98.4
[2018-03-16 20:12] LABS: COLLECTION METHOD CLEAN CATCH
[2018-03-16 20:17] LABS: BASO # 0.1 (0.0-0.2); BASO % 0.4 % (0.0-2.0); EOS # 0.4 (0.0-0.7); GRAN # 8.9 (1.4-6.5); GRAN % 69.8 % (42.2-75.2); HEMOGLOBIN 11.2 g/dl (12.5-16.0); LYMPH # 2.2 (1.2-3.4); LYMPH % 16.8 % (20.0-51.0); MEAN CELL VOLUME 91 fl (80.0-100.0); MEAN CORPUSCULAR HEMOGLOBIN 31 pg (27.0-31.0); MEAN CORPUSCULAR HGB CONC 34 g/dl (33.0-37.0); MONO # 1.2 (0.1-0.6); MONO % 9.2 % (1.7-9.3); PLATELET COUNT 199 K/mm3 (130-400); RED BLOOD COUNT 3.66 M/mm3 (4.10-5.30); REDCELL DISTRIBUTION WIDTH-CV 13.3 % (11.5-14.5)
[2018-03-16 20:18] LABS: HEMATOCRIT 33.2 % (37.0-47.0)
[2018-03-16 20:25] LABS: ALANINE AMINOTRANSFERASE 26 U/L (9-52); ALBUMIN 3.3 gm/dL (3.5-5.0); ALKALINE PHOSPHATASE 78 U/L (50-136); ANION GAP 5 mmol/L (7-16); AST,SGOT 16 U/L (15-37); BILIRUBIN,TOTAL < 0.1 mg/dL (0.0-1.0); BLOOD UREA NITROGEN 10 mg/dL (7-17); CARBON DIOXIDE 24 mmol/L (22-30); CHLORIDE 103 mmol/L (98-107); CREATININE, serum 0.53 mg/dL (0.52-1.25); GLUCOSE 91 mg/dL (74-106); POTASSIUM 3.9 mmol/L (3.4-5.0); SODIUM 133 mmol/L (137-145); TOTAL PROTEIN 6.4 gm/dL (6.4-8.2)
[2018-03-16 20:26] LABS: AMORPHOUS CRYSTAL Present /uL; MUCOUS Present /lpf; PH 6 (5-8); URINE APPEARANCE Cloudy; URINE BACTERIA None Seen /hpf; URINE BILIRUBIN Negative (NEGATIVE); URINE BLOOD Negative (NEGATIVE); URINE COLOR Yellow; URINE GLUCOSE Negative (NEGATIVE); URINE KETONE Negative (NEGATIVE); URINE LEUKOCYTE ESTERASE Negative (NEGATIVE); URINE NITRATE Negative (NEGATIVE); URINE PROTEIN(semi-quant) Negative (NEGATIVE); URINE RBC 0-2 /hpf; URINE UROBILINOGEN Negative (NEGATIVE)
[2018-03-16] MEDS ORDERED: REGLAN 10MG10 MG/TAB PO (20:36)
[2018-03-16] MEDS ORDERED: ZITHROMAX Z PA250 MG PO (20:36)
[2018-03-16 20:43] VITALS: PULSE 89
== END 2018-03-16 20:44 | disposition home or self-care (01) ==
LOC: COL.ER 19:17
PROVIDERS: Physician Assistant
DX: O21.2 Late vomiting of pregnancy (principal); O26.892 Other specified pregnancy related conditions, second trimester; R05 Cough; O99.332 Smoking (tobacco) complicating pregnancy, second trimester; F17.210 Nicotine dependence, cigarettes, uncomplicated; Z3A.23 23 weeks gestation of pregnancy

== ENCOUNTER 2018-04-11 16:21 | Outpatient (CLI) | payer MEDICAID ==
[~2018-04-11] VITALS: Ht 167.6 cm; Wt 86.4 kg
[~2018-04-11 16:21] MED LIST changes: +REGLAN 10MG10 MG/TAB PO; +ZITHROMAX Z PA250 MG PO
[2018-04-11 16:40] VITALS: BP 132/69; PULSE 92; TEMP 98.6
[2018-04-11 17:52] VITALS: PULSE 85
== END 2018-04-11 18:00 | disposition home or self-care (01) ==
LOC: LDRO 16:21 → LDR 17:05 → LDRO 18:00
DX: O99.89 Other specified diseases and conditions complicating pregnancy, childbirth and the puerperium (principal); R00.2 Palpitations; Z3A.28 28 weeks gestation of pregnancy
CPT/HCPCS: OP

== ENCOUNTER 2018-04-17 20:40 | Outpatient (CLI) | payer MEDICAID ==
[~2018-04-17] VITALS: Ht 167.6 cm; Wt 75.0 kg
[2018-04-17 21:03] VITALS: BP 135/82; PULSE 90; TEMP 98.2
[2018-04-17] MEDS ORDERED: TUMS ULTRA ST1000 MG PO (21:05)
[2018-04-17] MEDS ORDERED: FLINTSTONES1 CTB PO (21:06)
[2018-04-17] MEDS ORDERED: TYLENOL 500MG500 MG PO (21:06)
[2018-04-17 22:03] VITALS: BP 124/78; PULSE 80
== END 2018-04-17 22:18 | disposition home or self-care (01) ==
LOC: LDRO 20:40
DX: O26.893 Other specified pregnancy related conditions, third trimester (principal); N89.8 Other specified noninflammatory disorders of vagina; M54.5 Low back pain; R10.30 Lower abdominal pain, unspecified; Z3A.29 29 weeks gestation of pregnancy

== ENCOUNTER 2018-04-22 01:49 | Outpatient (CLI) | payer MEDICAID ==
[~2018-04-22] VITALS: Ht 167.6 cm; Wt 86.4 kg
[2018-04-22 01:49] VITALS: BP 118/75; PULSE 87; TEMP 97.6
[~2018-04-22 01:49] MED LIST changes: +FLINTSTONES1 CTB PO; +TUMS ULTRA ST1000 MG PO; +TYLENOL 500MG500 MG PO
[2018-04-22 02:15] VITALS: BP 120/78; PULSE 86
[2018-04-22 02:30] VITALS: BP 122/75; PULSE 97
[2018-04-22 02:45] VITALS: BP 110/70; PULSE 93
[2018-04-22 03:00] VITALS: BP 110/67; PULSE 97
[2018-04-22 03:20] VITALS: BP 111/73; PULSE 104
== END 2018-04-22 03:30 ==
LOC: LDRO 01:49
DX: O26.893 Other specified pregnancy related conditions, third trimester (principal); R10.2 Pelvic and perineal pain; Z3A.29 29 weeks gestation of pregnancy

== ENCOUNTER 2018-05-10 00:23 | Outpatient (CLI) | payer MEDICAID ==
[~2018-05-10] VITALS: Ht 165.1 cm; Wt 75.0 kg
[2018-05-10 01:00] VITALS: BP 142/87; PULSE 123; TEMP 98.2
[2018-05-10 01:28] LABS: COLLECTION METHOD CLEAN CATCH
[2018-05-10 01:36] LABS: HYALINE CAST >12 /lpf; MUCOUS Present /lpf; PH 5 (5-8); SQUAMOUS EPITHELIAL 20-50 /hpf; URINE APPEARANCE Cloudy; URINE BACTERIA Rare /hpf; URINE BILIRUBIN Negative (NEGATIVE); URINE BLOOD Negative (NEGATIVE); URINE COLOR Amber; URINE GLUCOSE Negative (NEGATIVE); URINE KETONE Trace (NEGATIVE); URINE LEUKOCYTE ESTERASE Negative (NEGATIVE); URINE NITRATE Negative (NEGATIVE); URINE PROTEIN(semi-quant) 3+ (NEGATIVE)
== END 2018-05-10 02:19 | disposition left against medical advice (07) ==
LOC: LDRO 00:23
PROVIDERS: Obstetrics & Gynecology
DX: O9A.213 Injury, poisoning and certain other consequences of external causes complicating pregnancy, third trimester (principal); W10.9XXA Fall (on) (from) unspecified stairs and steps, initial encounter; Z3A.32 32 weeks gestation of pregnancy

== ENCOUNTER 2018-05-22 06:25 | Emergency (ER) | payer MEDICAID ==
[~2018-05-22] VITALS: Ht 167.6 cm; Wt 83.6 kg
[2018-05-22 06:29] VITALS: TEMP 97.9
[2018-05-22 07:11] LABS: BASO % 0.2 % (0.0-2.0); EOS # 0.2 (0.0-0.7); EOS % 1.6 % (0-4.0); GRAN % 70.3 % (42.2-75.2); HEMOGLOBIN 11.8 g/dl (12.5-16.0); LYMPH # 2.4 (1.2-3.4); LYMPH % 18.9 % (20.0-51.0); MEAN CELL VOLUME 85 fl (80.0-100.0); MEAN CORPUSCULAR HEMOGLOBIN 29 pg (27.0-31.0); MEAN CORPUSCULAR HGB CONC 34 g/dl (33.0-37.0); MEAN PLATELET VOLUME 11.9 fl (7.4-10.4); MONO # 1.1 (0.1-0.6); MONO % 8.5 % (1.7-9.3); PLATELET COUNT 173 K/mm3 (130-400); RED BLOOD COUNT 4.03 M/mm3 (4.10-5.30); REDCELL DISTRIBUTION WIDTH-CV 13.1 % (11.5-14.5)
[2018-05-22 07:20] LABS: ALBUMIN 3.2 gm/dL (3.5-5.0); BILIRUBIN,TOTAL 0.1 mg/dL (0.0-1.0); CALCIUM 9.1 mg/dL (8.4-10.2); CREATININE, serum 0.6 mg/dL (0.52-1.25); POTASSIUM 3.6 mmol/L (3.4-5.0); TOTAL PROTEIN 6.4 gm/dL (6.4-8.2)
[2018-05-22 07:21] LABS: HEMATOCRIT 34.4 % (37.0-47.0)
[2018-05-22 07:56] LABS: COLLECTION METHOD CLEAN CATCH
[2018-05-22 08:06] LABS: AMORPHOUS CRYSTAL Present /uL; MUCOUS Present /lpf; PH 7 (5-8); URINE APPEARANCE Cloudy; URINE BACTERIA None Seen /hpf; URINE BILIRUBIN Negative (NEGATIVE); URINE BLOOD Negative (NEGATIVE); URINE COLOR Yellow; URINE GLUCOSE Negative (NEGATIVE); URINE KETONE Negative (NEGATIVE); URINE LEUKOCYTE ESTERASE Negative (NEGATIVE); URINE NITRATE Negative (NEGATIVE); URINE PROTEIN(semi-quant) 1+ (NEGATIVE); URINE RBC 0-2 /hpf; URINE UROBILINOGEN Negative (NEGATIVE)
[2018-05-22] MEDS ORDERED: ZITHROMAX 250M250 MG PO (09:30)
[2018-05-22 09:37] VITALS: BP 118/72; PULSE 90
== END 2018-05-22 10:04 | disposition home or self-care (01) ==
LOC: COL.ER 06:25
PROVIDERS: Emergency Medicine
DX: O99.513 Diseases of the respiratory system complicating pregnancy, third trimester (principal); O99.333 Smoking (tobacco) complicating pregnancy, third trimester; J40 Bronchitis, not specified as acute or chronic; F90.9 Attention-deficit hyperactivity disorder, unspecified type; F31.9 Bipolar disorder, unspecified; F17.210 Nicotine dependence, cigarettes, uncomplicated; Z3A.33 33 weeks gestation of pregnancy
CPT/HCPCS: J2405; J7030

== ENCOUNTER 2018-05-30 04:50 | Outpatient (CLI) | payer MEDICAID ==
[~2018-05-30] VITALS: Ht 167.6 cm; Wt 86.4 kg
[2018-05-30 05:38] LABS: BASO % 0.3 % (0.0-2.0); EOS # 0.2 (0.0-0.7); EOS % 1.4 % (0-4.0); GRAN % 69.6 % (42.2-75.2); HEMATOCRIT 36.6 % (37.0-47.0); HEMOGLOBIN 12.3 g/dl (12.5-16.0); LYMPH # 2.7 (1.2-3.4); LYMPH % 20.8 % (20.0-51.0); MEAN CELL VOLUME 86 fl (80.0-100.0); MEAN CORPUSCULAR HEMOGLOBIN 29 pg (27.0-31.0); MEAN CORPUSCULAR HGB CONC 34 g/dl (33.0-37.0); MEAN PLATELET VOLUME 11.9 fl (7.4-10.4); MONO # 0.9 (0.1-0.6); MONO % 7.2 % (1.7-9.3); PLATELET COUNT 227 K/mm3 (130-400); RED BLOOD COUNT 4.28 M/mm3 (4.10-5.30); REDCELL DISTRIBUTION WIDTH-CV 13.6 % (11.5-14.5)
[2018-05-30 05:52] LABS: ALBUMIN 3.3 gm/dL (3.5-5.0); BILIRUBIN,TOTAL 0.2 mg/dL (0.0-1.0); CREATININE, serum 0.6 mg/dL (0.52-1.25); POTASSIUM 3.9 mmol/L (3.4-5.0); TOTAL PROTEIN 6.7 gm/dL (6.4-8.2)
[2018-05-30 06:15] LABS: COLLECTION METHOD CLEAN CATCH
[2018-05-30 06:27] LABS: MUCOUS Present /lpf; PH 6 (5-8); URINE APPEARANCE Hazy; URINE BACTERIA Rare /hpf; URINE BILIRUBIN Negative (NEGATIVE); URINE BLOOD Negative (NEGATIVE); URINE COLOR Yellow; URINE GLUCOSE Negative (NEGATIVE); URINE KETONE Negative (NEGATIVE); URINE LEUKOCYTE ESTERASE Trace (NEGATIVE); URINE NITRATE Negative (NEGATIVE); URINE PROTEIN(semi-quant) 1+ (NEGATIVE)
[2018-05-30 07:00] VITALS: BP 129/74; PULSE 77
[2018-05-30 07:25] VITALS: BP 122/82; PULSE 78
[2018-05-30 07:29] VITALS: BP 140/99; PULSE 68; TEMP 97.6
== END 2018-05-30 07:30 | disposition home or self-care (01) ==
LOC: COL.ER 04:50 → LDRO 04:50 → LDR 05:17 → COL.ER 05:17 → LDRO 05:55 → COL.ER 05:55 → EDSTATUS 06:49 → LDR 07:30 → LDRO 07:30 → LDR 07:30
PROVIDERS: Emergency Medicine; Obstetrics & Gynecology
DX: O26.893 Other specified pregnancy related conditions, third trimester (principal); R10.11 Right upper quadrant pain; W18.30XA Fall on same level, unspecified, initial encounter; Y92.002 Bathroom of unspecified non-institutional (private) residence as the place of occurrence of the external cause; O16.3 Unspecified maternal hypertension, third trimester; R05 Cough
CPT/HCPCS: J2270; J2405

== ENCOUNTER 2018-06-14 01:03 | Outpatient (CLI) | payer OTHER ==
[~2018-06-14] VITALS: Ht 167.6 cm; Wt 88.2 kg
--- NOTE | 2018-06-14 01:15 | NUR ---
PT TO THE UNIT WITH COMPLAINTS OF CONTRACTIONS THAT STARTED APPROXIMATELY 1 HOUR AGO WHILE OUT CELEBRATING THE NEW YEAR. PT STATES THAT SHE SMOKES 1/2 PACK CIGARETTES DAILY AND DRINKS APPROXIMATELY 4 LITERS OF SODA DAILY, HAS ONLY HAD A GLASS OF WATER TODAY AND STATES SHE THINKS WATER TASTES "GROSS" AND DOESN'T DRINK IT. DENIES LOF OR VAGINAL BLEEDING. EFM X2 APPLIED, VS OBTAINED AND SVE PERFORMED.
[2018-06-14 01:25] VITALS: BP 138/64; PULSE 113; TEMP 97.7
[2018-06-14] MEDS ORDERED: TUMS500 MG PO (01:33)
[2018-06-14] MEDS ORDERED: TYLENOL 500MG500 MG PO (01:34)
[2018-06-14] MEDS ORDERED: BENADRYL25 M2 PO (01:34)
[2018-06-14 01:45] VITALS: BP 138/64; PULSE 113; TEMP 98.5
--- NOTE | 2018-06-14 01:50 | NUR ---
PT STATES THAT SHE WILL NEED AT CAB VOUCHER IN ORDER TO GET HOME HER NEIGHBOR BROUGHT HER AND HER SPOUSE TO THE HOSPITAL BUT HE IS UNABLE TO COME BACK TO GET THEM. WILL CONTACT [employer] FOR VOUCHER.
--- NOTE | 2018-06-14 02:27 | NUR ---
PT SLEEPING UPON ENTERING ROOM. SVE UNCHANGED, NOTIFIED PT THAT I WILL BE CALLING THE PHYSICIAN TO LET HIM KNOW OF ARRIVAL AND UNCHANGED SVE SINCE ARRIVAL. PT REQUESTS FOR MONITORING TO BE REMOVED SO SHE CAN CHANGE, MONITORING DC'D.
--- NOTE | 2018-06-14 02:45 | NUR ---
CONTACTED [employer]. BOARD LINER OPERATOR STATES SHE WILL BE ABLE TO PICK THE PT UP IN 30-40 MINUTES AND WILL VOICER FROM THE ER.
--- NOTE | 2018-06-14 02:55 | NUR ---
DISCHARGE INSTRUCTIONS REVIEWED WITH PT AND SPOUSE. ENCOURAGE PT TO USE PITCHER I PROVIDED TO HELP KEEP TRACK OF WATER INTAKE. ENCOURAGE TO DRINK 6 PITCHERS OF WATER DAILY AND DECREASE INTAKE OF SODA. PT AND SPOUSE VERBALIZE UNDERSTANDING. PT LEFT THE UNIT AMBULATORY WITH SPOUSE TO WAIT IN ER WAITING ROOM FOR CAB.
== END 2018-06-14 02:55 | disposition home or self-care (01) ==
LOC: LDRO 01:03
DX: O62.9 Abnormality of forces of labor, unspecified (principal); Z3A.37 37 weeks gestation of pregnancy

== ENCOUNTER 2018-06-15 09:35 | Outpatient (CLI) | payer OTHER ==
[~2018-06-15] VITALS: Ht 167.6 cm; Wt 88.2 kg
--- NOTE | 2018-06-15 09:25 | NUR ---
Patient presents to unit with significant other accompaning with complaints of left sided pain in upper rib area. Denies any leaking of fluid, bleeding or contractions. Patient has felt baby move. Patient reports this pain began around 0700, she reports dirnkig 6 pitchers of water a day, had bowel movement yesterday am, sexual intercourse 2 days ago with no issues, report no urinary symptoms, notified of patient on unit, orders recieved for 20 minute strip and then discharge.
[~2018-06-15 09:35] MED LIST changes: +BENADRYL25 M2 PO; +TUMS500 MG PO
[2018-06-15 10:00] VITALS: BP 117/74; PULSE 103; TEMP 98.2
== END 2018-06-15 10:00 | disposition home or self-care (01) ==
LOC: LDRO 09:35
DX: O26.893 Other specified pregnancy related conditions, third trimester (principal); Z3A.37 37 weeks gestation of pregnancy; R07.81 Pleurodynia

== ENCOUNTER 2018-09-06 21:40 | Emergency (ER) | payer MEDICAID ==
[~2018-09-06] VITALS: Ht 167.6 cm; Wt 83.6 kg
[~2018-09-06 21:40] MED LIST changes: +MOTRIN 800800 MG/TAB PO; +NORCO 325 MG-51 TAB PO
[2018-09-06 22:06] VITALS: BP 133/89; TEMP 98.5
[2018-09-07 00:23] LABS: COLLECTION METHOD CLEAN CATCH
[2018-09-07 00:29] LABS: MUCOUS Present /lpf; PH 5 (5-8); SQUAMOUS EPITHELIAL 0-2 /hpf; URINE APPEARANCE Clear; URINE BACTERIA None Seen /hpf; URINE BILIRUBIN Negative (NEGATIVE); URINE BLOOD 2+ (NEGATIVE); URINE COLOR Yellow; URINE GLUCOSE Negative (NEGATIVE); URINE KETONE Negative (NEGATIVE); URINE LEUKOCYTE ESTERASE Negative (NEGATIVE); URINE NITRATE Negative (NEGATIVE); URINE PROTEIN(semi-quant) Negative (NEGATIVE); URINE UROBILINOGEN Negative (NEGATIVE)
[2018-09-07 00:30] VITALS: PULSE 82
[2018-09-07] MEDS ORDERED: MIRENA52 MG IY (00:39)
[2018-09-07 00:47] LABS: BASO % 0.3 % (0.0-2.0); EOS # 0.1 (0.0-0.7); EOS % 1.2 % (0-4.0); GRAN # 7.1 (1.4-6.5); GRAN % 62.4 % (42.2-75.2); HEMOGLOBIN 13.6 g/dl (12.5-16.0); LYMPH # 3.2 (1.2-3.4); LYMPH % 27.6 % (20.0-51.0); MEAN CELL VOLUME 88 fl (80.0-100.0); MEAN CORPUSCULAR HEMOGLOBIN 29 pg (27.0-31.0); MEAN CORPUSCULAR HGB CONC 33 g/dl (33.0-37.0); MEAN PLATELET VOLUME 11.2 fl (7.4-10.4); MONO # 0.9 (0.1-0.6); MONO % 7.5 % (1.7-9.3); PLATELET COUNT 251 K/mm3 (130-400); RED BLOOD COUNT 4.68 M/mm3 (4.10-5.30); REDCELL DISTRIBUTION WIDTH-CV 14.3 % (11.5-14.5)
[2018-09-07 00:56] LABS: ALBUMIN 4.5 gm/dL (3.5-5.0); BILIRUBIN,TOTAL 0.2 mg/dL (0.0-1.0); CALCIUM 9.8 mg/dL (8.4-10.2); CREATININE, serum 0.78 mg/dL (0.52-1.25); POTASSIUM 3.7 mmol/L (3.4-5.0); TOTAL PROTEIN 7.8 gm/dL (6.4-8.2)
== END 2018-09-07 02:11 | disposition left against medical advice (07) ==
LOC: COL.ER 21:40
PROVIDERS: Physician Assistant
DX: N93.9 Abnormal uterine and vaginal bleeding, unspecified (principal); Z97.5 Presence of (intrauterine) contraceptive device

== ENCOUNTER 2018-11-20 20:12 | Emergency (ER) | payer SELFPAY ==
[~2018-11-20] VITALS: Ht 167.6 cm; Wt 81.8 kg
[~2018-11-20 20:12] MED LIST changes: +MIRENA52 MG IY
[2018-11-20 20:17] VITALS: BP 126/91; PULSE 95; TEMP 98.7
== END 2018-11-20 20:55 | disposition home or self-care (01) ==
LOC: COL.ER 20:12
DX: S01.512A Laceration without foreign body of oral cavity, initial encounter (principal); W01.0XXA Fall on same level from slipping, tripping and stumbling without subsequent striking against object, initial encounter

== ENCOUNTER 2019-09-24 19:47 | Emergency (ER) | payer SELFPAY ==
[~2019-09-24] VITALS: Ht 167.6 cm; Wt 64.5 kg
[2019-09-24 19:51] VITALS: BP 138/100; TEMP 98.3
[2019-09-24] MEDS ORDERED: ROBAXIN 75750 MG/TAB PO ×2 (20:23)
[2019-09-24] MEDS ORDERED: FLEXERIL 1010 MG/TAB PO (20:26)
[2019-09-24 20:37] VITALS: PULSE 98
== END 2019-09-24 20:39 | disposition home or self-care (01) ==
LOC: COL.ER 19:47
DX: S39.012A Strain of muscle, fascia and tendon of lower back, initial encounter (principal); X50.1XXA Overexertion from prolonged static or awkward postures, initial encounter

== ENCOUNTER 2020-02-24 23:22 | Emergency (ER) | payer SELFPAY ==
[~2020-02-24] VITALS: Ht 167.6 cm; Wt 68.2 kg
[~2020-02-24 23:22] MED LIST changes: +ROBAXIN 75750 MG/TAB PO
[2020-02-24 23:36] VITALS: TEMP 97.8
[2020-02-25 00:25] LABS: COLLECTION METHOD CLEAN CATCH
[2020-02-25 00:34] LABS: MUCOUS Present /lpf; PH 6 (5-8); URINE APPEARANCE Hazy; URINE BACTERIA None Seen /hpf; URINE BILIRUBIN Negative (NEGATIVE); URINE BLOOD 1+ (NEGATIVE); URINE COLOR Yellow; URINE GLUCOSE Negative (NEGATIVE); URINE KETONE Negative (NEGATIVE); URINE LEUKOCYTE ESTERASE 1+ (NEGATIVE); URINE NITRATE Negative (NEGATIVE); URINE PROTEIN(semi-quant) Negative (NEGATIVE); URINE UROBILINOGEN Negative (NEGATIVE)
[2020-02-25 00:39] LABS: BASO % 0.4 % (0.0-2.0); EOS # 0.1 (0.0-0.7); EOS % 1.3 % (0-4.0); GRAN # 6.3 (1.4-6.5); HEMATOCRIT 39.6 % (37.0-47.0); HEMOGLOBIN 12.9 g/dl (12.5-16.0); LYMPH # 2.4 (1.2-3.4); LYMPH % 24.7 % (20.0-51.0); MEAN CELL VOLUME 92 fl (80.0-100.0); MEAN CORPUSCULAR HEMOGLOBIN 30 pg (27.0-31.0); MEAN CORPUSCULAR HGB CONC 33 g/dl (33.0-37.0); MONO # 0.6 (0.1-0.6); MONO % 6.7 % (1.7-9.3); PLATELET COUNT 236 K/mm3 (130-400); RED BLOOD COUNT 4.29 M/mm3 (4.10-5.30); REDCELL DISTRIBUTION WIDTH-CV 13.4 % (11.5-14.5)
[2020-02-25 00:44] LABS: TRICYCLIC ANTIDEPRESS URINE NEGATIVE
[2020-02-25 00:44] LABS: ALANINE AMINOTRANSFERASE 13 U/L (4-34); ALBUMIN 4.4 gm/dL (3.5-5.0); ALKALINE PHOSPHATASE 116 U/L (50-136); ANION GAP 8 mmol/L (7-16); AST,SGOT 20 U/L (15-37); BILIRUBIN,TOTAL 0.2 mg/dL (0.0-1.0); BLOOD UREA NITROGEN 21 mg/dL (7-17); CALCIUM 9.5 mg/dL (8.4-10.2); CARBON DIOXIDE 29 mmol/L (22-30); CHLORIDE 105 mmol/L (98-107); CREATININE, serum 0.83 (0.52-1.25); GLUCOSE 80 mg/dL (74-106); POTASSIUM 4.7 mmol/L (3.4-5.0); SODIUM 142 mmol/L (137-145); TOTAL PROTEIN 7.3 gm/dL (6.4-8.2)
[2020-02-25 00:45] LABS: ACETAMINOPHEN < 10 ug/mL (10-30); ALCOHOL(ethanol),MEDICAL < 10 mg/dL; SALICYLATE < 1.0 mg/dL
[2020-02-25 13:45] VITALS: BP 107/74; PULSE 84
== END 2020-02-25 13:45 | disposition home or self-care (01) ==
LOC: COL.ER 23:22
PROVIDERS: Physician Assistant
DX: R45.851 Suicidal ideations (principal); Z32.02 Encounter for pregnancy test, result negative

== ENCOUNTER 2020-05-03 09:31 | Emergency (ER) | payer SELFPAY ==
[~2020-05-03] VITALS: Ht 167.6 cm; Wt 61.4 kg
[2020-05-03 10:45] LABS: BASO # 0.1 (0.0-0.2); BASO % 0.7 % (0.0-2.0); EOS # 0.1 (0.0-0.7); EOS % 0.7 % (0-4.0); GRAN % 78.6 % (42.2-75.2); HEMATOCRIT 42.2 % (37.0-47.0); HEMOGLOBIN 14.3 g/dl (12.5-16.0); LYMPH # 1.6 (1.2-3.4); LYMPH % 12.7 % (20.0-51.0); MEAN CELL VOLUME 89 fl (80.0-100.0); MEAN CORPUSCULAR HEMOGLOBIN 30 pg (27.0-31.0); MEAN CORPUSCULAR HGB CONC 34 g/dl (33.0-37.0); MEAN PLATELET VOLUME 10.5 fl (7.4-10.4); MONO # 0.9 (0.1-0.6); PLATELET COUNT 221 K/mm3 (130-400); RED BLOOD COUNT 4.73 M/mm3 (4.10-5.30); REDCELL DISTRIBUTION WIDTH-CV 12.8 % (11.5-14.5)
[2020-05-03 10:49] LABS: INR 1.2 (0.8-3.0); PROTHROMBIN TIME 13.5 SECONDS (9.7-12.8)
[2020-05-03 10:57] LABS: ALANINE AMINOTRANSFERASE 15 U/L (4-34); ALBUMIN 4.8 gm/dL (3.5-5.0); ALKALINE PHOSPHATASE 89 U/L (50-136); ANION GAP 13 mmol/L (7-16); AST,SGOT 29 U/L (15-37); BILIRUBIN,TOTAL 0.9 mg/dL (0.0-1.0); BLOOD UREA NITROGEN 19 mg/dL (7-17); CALCIUM 9.6 mg/dL (8.4-10.2); CARBON DIOXIDE 22 mmol/L (22-30); CHLORIDE 104 mmol/L (98-107); CREATININE, serum 0.89 (0.52-1.25); GLUCOSE 72 mg/dL (74-106); POTASSIUM 3.8 mmol/L (3.4-5.0); SODIUM 139 mmol/L (137-145); TOTAL PROTEIN 7.8 gm/dL (6.4-8.2)
[2020-05-03 10:58] LABS: ACETAMINOPHEN < 10 ug/mL (10-30); ALCOHOL(ethanol),MEDICAL < 10 mg/dL
[2020-05-03 11:11] LABS: TROPONIN-I < 0.012 ng/mL (0.000-0.035)
[2020-05-03 19:05] LABS: TRICYCLIC ANTIDEPRESS URINE NEGATIVE
[2020-05-04 07:16] LABS: COLLECTION METHOD CLEAN CATCH
[2020-05-04 07:26] LABS: MUCOUS Present /lpf; PH 5 (5-8); URINE APPEARANCE Hazy; URINE BACTERIA None Seen /hpf; URINE BILIRUBIN Negative (NEGATIVE); URINE BLOOD Negative (NEGATIVE); URINE COLOR Yellow; URINE GLUCOSE Negative (NEGATIVE); URINE KETONE 1+ (NEGATIVE); URINE LEUKOCYTE ESTERASE Negative (NEGATIVE); URINE NITRATE Negative (NEGATIVE); URINE PROTEIN(semi-quant) 1+ (NEGATIVE); URINE RBC 0-2 /hpf; URINE UROBILINOGEN Negative (NEGATIVE)
[2020-05-04 21:35] VITALS: BP 123/83; PULSE 72; TEMP 98.1
== END 2020-05-04 23:15 ==
LOC: COL.ER 09:31
PROVIDERS: Emergency Medicine
DX: S61.512A Laceration without foreign body of left wrist, initial encounter (principal); S01.81XA Laceration without foreign body of other part of head, initial encounter; S11.91XA Laceration without foreign body of unspecified part of neck, initial encounter; T48.1X2A Poisoning by skeletal muscle relaxants [neuromuscular blocking agents], intentional self-harm, initial encounter; F32.9 Major depressive disorder, single episode, unspecified; R45.851 Suicidal ideations; F17.200 Nicotine dependence, unspecified, uncomplicated; Z23 Encounter for immunization; Z20.828 Contact with and (suspected) exposure to other viral communicable diseases; X78.8XXA Intentional self-harm by other sharp object, initial encounter
CPT/HCPCS: J1200; J1630